=== PATIENT | male | born 1940 | race Caucasian/White ===

== ENCOUNTER → 2020-09-03 | Outpatient (CLI) | payer MEDICARE, BC ==
[~2020-09-03] MED LIST: CELE200C PO; FOLI-17 PO; LISI-170 PO; METH2.5T PO; OMEP10CA5 PO; TAMS-11 PO
[2020-09-03 14:27] LABS: BASOPHILS % (AUTO) 1 % (0-1); EOSINOPHILS % (AUTO) 2 % (1-7); LYMPHOCYTES % (AUTO) 15 % (22-44); MEAN CORPUSCULAR HEMOGLOBIN 32.6 pg (27.5-34.5); MEAN CORPUSCULAR HGB CONC 33.3 g/dL (33.2-36.2); MONOCYTES % (AUTO) 8 % (2-9); NEUTROPHILS % (AUTO) 75 % (42-75); PLATELET COUNT 286 x10^3/uL (130-400); RED BLOOD COUNT 4.49 x10^6/uL (4.38-5.82); RED CELL DISTRIBUTION WIDTH 13.3 % (9.4-14.8)
[2020-09-03 14:33] LABS: ALANINE AMINOTRANSFERASE 22 U/L (12-78); ALBUMIN 4.2 g/dL (3.4-5.0); ANION GAP 5 mmol/L (5-15); CHLORIDE 108 mmol/L (98-107); CREATININE 0.87 mg/dL (0.7-1.3)
[2020-09-03 14:35] LABS: ALKALINE PHOSPHATASE 84 U/L (45-117); BILIRUBIN,TOTAL 1.1 mg/dL (0.2-1.0); TOTAL PROTEIN 7.4 g/dL (6.4-8.2)
[2020-09-03 15:05] LABS: MD SCAN
== END | disposition home or self-care (01) ==
LOC: STAR 13:00
PROVIDERS: ATTEND Orthopaedic Surgery
DX: Z01.818 Encounter for other preprocedural examination (principal); M25.561 Pain in right knee
CPT/HCPCS: 36415; 80053; 85025; 93005

== ENCOUNTER 2020-09-08 08:24 | Observation (INO) | payer MEDICARE, BC ==
[~2020-09-08] VITALS: Ht 172.7 cm; Wt 73.1 kg
[~2020-09-08 08:24] MED LIST changes: -FOLI-17 PO
[2020-09-08] MEDS ORDERED: FOLI-17 PO (08:57)
[2020-09-08] MEDS ORDERED: CHLORHEXIDINE 15 ML UDC MM ONE (09:00)
[2020-09-08 09:01] VITALS: BP 182/86
[2020-09-08] MEDS: LACTATED RINGERS 1,000 ML IV SCH ×2 (09:24→14:50)
[2020-09-08] MEDS ORDERED: MIDAZOLAM 1 MG/ML, 2ML ONE (10:03)
[2020-09-08] MEDS ORDERED: FENTANYL PF 250 MCG/5ML ONE (10:03)
[2020-09-08] MEDS ORDERED: TRANEXAMIC ACID 100 MG/ML, 10ML ONE (10:08)
[2020-09-08] MEDS ORDERED: KETOROLAC 60 MG/2 ML ONE (10:08)
[2020-09-08] MEDS ORDERED: VANCOMYCIN 1,000 MG ONE (10:09)
[2020-09-08] MEDS ORDERED: EPINEPHRINE 1 MG/ML, 1ML ONE (10:09)
[2020-09-08] MEDS ORDERED: SODIUM CHLORIDE 0.9% 50 ML ONE (10:09)
[2020-09-08] MEDS ORDERED: ROPIvacaine/PF 0.2%, 20 ML ONE (10:09)
[2020-09-08] MEDS ORDERED: hydrALAzine 20 MG/ML, 1ML ONE (11:23)
[2020-09-08] MEDS ORDERED: DEXAMETHASONE 4 MG/ML, 1ML ONE (11:23)
[2020-09-08] MEDS ORDERED: PROPOFOL 10 MG/ML, 20ML ONE (11:23)
[2020-09-08] MEDS ORDERED: CEFAZOLIN 1,000 MG ONE (11:23)
[2020-09-08] MEDS ORDERED: ONDANSETRON 2MG/ML, 2ML ONE (11:23)
[2020-09-08] MEDS ORDERED: ONDANSETRON 2MG/ML, 2ML IVPush PRN ×2 (12:30→13:00)
[2020-09-08] MEDS ORDERED: hydrALAzine 20 MG/ML, 1ML IV PRN (12:30)
[2020-09-08] MEDS ORDERED: ACETAMINOPHEN 325 MG TABLET PO PRN (12:30)
[2020-09-08] MEDS ORDERED: OXYcodone 5 MG/5 ML ORAL.SOL UDC PO PRN (12:30)
[2020-09-08] MEDS ORDERED: LABETALOL 5MG/ML, 20ML IV PRN (12:30)
[2020-09-08] MEDS ORDERED: FENTANYL PF 100 MCG/2ML IV PRN (12:30)
[2020-09-08] MEDS ORDERED: DIAZEPAM 5 MG TABLET PO PRN (13:00)
[2020-09-08] MEDS ORDERED: SENNA/DOCUSATE TABLET PO PRN (13:00)
[2020-09-08] MEDS ORDERED: ALUMINUM/MAG/SIMETHICONE 30 ML UDC PO PRN (13:00)
[2020-09-08] MEDS ORDERED: SODIUM CHLORIDE 0.9% 1,000 ML IV SCH (13:00)
[2020-09-08] MEDS ORDERED: ONDANSETRON 4 MG TABLET PO PRN (13:00)
[2020-09-08] MEDS ORDERED: BISACODYL 10 MG SUPP PR PRN (13:00)
[2020-09-08] MEDS ORDERED: POLYETHYLENE GLYCOL 17 GM PACKET PO PRN (13:00)
[2020-09-08] MEDS ORDERED: PSYLLIUM PACKET PO PRN (13:00)
[2020-09-08] MEDS ORDERED: HYDROmorphone 1 MG/ML, 1ML INJ IVPush PRN (13:00)
[2020-09-08] MEDS ORDERED: DIPHENHYDRAMINE 50 MG CAPSULE PO PRN (13:00)
[2020-09-08] MEDS ORDERED: ACETAMINOPHEN 500 MG TABLET PO SCH (13:00)
[2020-09-08] MEDS ORDERED: OXYcodone IR 5MG TABLET PO PRN ×2 (13:00)
[2020-09-08] MEDS ORDERED: PROMETHAZINE 25 MG/ML, 1ML IM PRN (13:00)
[2020-09-08] MEDS ORDERED: MAGNESIUM HYDROXIDE 8%, 30ML UDC PO PRN (13:00)
[2020-09-08] MEDS ORDERED: METOCLOPRAMIDE 5 MG/ML, 2ML IVPush PRN (13:00)
[2020-09-08] MEDS ORDERED: METOCLOPRAMIDE 10MG TABLET PO PRN (13:00)
[2020-09-08] MEDS ORDERED: DIPHENHYDRAMINE 50 MG/ML, 1ML IVPush PRN (13:00)
[2020-09-08] MEDS ORDERED: KETOROLAC 30 MG/1 ML IV SCH (13:00)
[2020-09-08] MEDS ORDERED: PROMETHAZINE 12.5 MG SUPP PR PRN (13:00)
[2020-09-08] MEDS ORDERED: HYDROmorphone 1 MG/ML, 1ML INJ ONE (13:13)
[2020-09-08] MEDS ORDERED: OXYcodone 5 MG/5 ML ORAL.SOL UDC ONE (13:13)
[2020-09-08] MEDS ORDERED: MEPERIDINE/PF 25MG/ML,1ML ONE (13:22)
[2020-09-08] MEDS: HYDROmorphone 1 MG/ML, 1ML INJ IVPush PRN ×2 (13:26→13:36)
[2020-09-08] MEDS ORDERED: TRANEXAMIC ACID 1,000 MG in SODIUM CHLORIDE 0.9% 100 ML IVPB ONE (13:30)
[2020-09-08] MEDS ORDERED: MEPERIDINE/PF 25MG/0.5ML IVPush ONE (13:30)
[2020-09-08] MEDS ORDERED: CEFAZOLIN PMX 1GM/50ML 50 ML IVPB SCH (14:39)
[2020-09-08] MEDS ORDERED: LISINOPRIL 20 MG TABLET PO ONE (16:30)
[2020-09-08 17:13] VITALS: BP 139/68
[2020-09-08 17:35] VITALS: BP 144/69
[2020-09-08] MEDS ORDERED: ASPIRIN 81 MG TABLET EC PO SCH (18:00)
[2020-09-08] MEDS ORDERED: TAMSULOSIN 0.4 MG CAP.ER.24H PO ONE (19:00)
[2020-09-08] MEDS ORDERED: DOCUSATE 100 MG CAPSULE PO SCH (21:00)
[2020-09-09] MEDS ORDERED: OMEPRAZOLE 10 MG CAPSULE.DR PO SCH (06:00)
[2020-09-09] MEDS ORDERED: DEXAMETHASONE 4 MG/ML, 1ML IVPush SCH (06:00)
[2020-09-09] MEDS ORDERED: LISINOPRIL 20 MG TABLET PO SCH (09:00)
[2020-09-09] MEDS ORDERED: METHOTREXATE 2.5 MG TABLET PO SCH (09:00)
== END 2020-09-08 18:07 | disposition home or self-care (01) ==
LOC: OUT 08:24 → 4NE 13:00
PROVIDERS: ADMIT Orthopaedic Surgery; ATTEND Orthopaedic Surgery
DX: M17.11 Unilateral primary osteoarthritis, right knee (principal); I10 Essential (primary) hypertension; M06.9 Rheumatoid arthritis, unspecified; Z79.899 Other long term (current) drug therapy; Z96.651 Presence of right artificial knee joint
CPT/HCPCS: 27447; 73560; 97162; C1713; C1776; G0378; J0171; J0360; J0690; J1100; J1170; J1885; J2175; J2250; J2405; J2704; J2795; J3010; J3370; J7120